=== PATIENT | female | born 1980 | race Caucasian/White ===

== ENCOUNTER 2016-06-12 17:50 | Emergency (ER) | payer BC ==
[~2016-06-12] VITALS: Ht 174 cm; Wt 127.4 kg
[~2016-06-12 17:50] MED LIST: BREAST PUMP MC; ENDOCET 5-3251 EACH PO; IBUPROFEN800 MG PO; IRON325 MG PO; LEXAPRO10 MG PO; Motrin PO; NATALCARE RX1 TABLET PO; NORCO 5/3251 TABLET PO; ONCE DAILY1 EACH PO; PROTONIX40 MG PO; Percocet 5/325,Endoc PO
[2016-06-12 19:44] LABS: ADD MIUA? NO; BILIRUBIN NEGATIVE; BLOOD NEGATIVE; COLOR COLORLESS ((YELLOW)); GLUCOSE (STRIP) NEGATIVE; KETONES NEGATIVE; LEUKOCYTES NEGATIVE; NITRITE NEGATIVE; PROTEIN (STRIP) NEGATIVE; SPECIFIC GRAVITY 1.003 (1.000-1.030); UROBILINOGEN 0.2 MG/DL (0.2-1.0)
[2016-06-12 19:51] LABS: HEMATOCRIT 30.1 % (36.0-46.0); MCH 20.7 PG (29.0-34.0); MCHC 30.9 G/DL (30.0-36.0); MEAN PLAT.VOLUME 10.2 uM^3 (9.5-12.4); PLATELET COUNT 270 K/uL (156-360); RBC DIS.WIDTH-CV 16.3 % (11.8-14.6); RBC DIS.WIDTH-SD 38.8 % (39-53); RED BLOOD COUNT 4.49 M/uL (3.80-5.20); WHITE BLOOD COUNT 15.6 K/uL (4.1-10.2)
[2016-06-12 19:54] LABS: BASOPHIL COUNT 0.1 K/uL (0-0.1); EOSINOPHIL (%) 0.4 % (0-5); EOSINOPHIL COUNT 0.1 K/uL (0-0.3); IMMATURE GRANULOCYTE (%) 0.3 % (0.0-0.7); IMMATURE GRANULOCYTE COUNT 0.5 K/uL; LYMPHOCYTE COUNT 3.5 K/uL (1.0-2.8); MONOCYTE (%) 5.4 % (3-12); MONOCYTE COUNT 0.8 K/uL (0-0.8); NEUTROPHIL (%) 71.5 % (45-76); NEUTROPHIL COUNT 11.1 K/uL (1.8-6.4)
[2016-06-12 20:00] LABS: CHLORIDE 102 mEq/L (99-109); SODIUM 138 mEq/L (136-147)
[2016-06-12 20:02] LABS: GLUCOSE 105 mg/dL (70-99)
[2016-06-12 20:03] LABS: ANION GAP 9 MEQ/L (2-14)
[2016-06-12 20:04] LABS: TOTAL BILIRUBIN 0.3 mg/dL (0.0-1.0)
[2016-06-12 20:06] LABS: ALKALINE PHOSPHATASE 82 IU/L (3-129); GFR ESTIMATE (CALCULATED) > 59 mL/min/
[2016-06-12 20:07] LABS: UREA NITROGEN (BUN) 10 mg/dL (9-23)
[2016-06-12 20:09] LABS: LIPASE 24 U/L (1.0-51.0)
[2016-06-12] MEDS ORDERED: BENTYL20 MG PO (20:40)
[2016-06-12] MEDS ORDERED: ZANTAC300 MG PO (20:40)
[2016-06-12] MEDS ORDERED: ZOFRAN ODT4 MG PO (20:40)
[2016-06-12 21:08] VITALS: BP 134/92
== END 2016-06-12 21:09 | disposition home or self-care (01) ==
LOC: EME 17:50
PROVIDERS: Physician Assistant
DX: R10.13 Epigastric pain (principal); D64.9 Anemia, unspecified; D72.829 Elevated white blood cell count, unspecified; R14.0 Abdominal distension (gaseous); R11.2 Nausea with vomiting, unspecified; Z91.14 Patient's other noncompliance with medication regimen; F17.200 Nicotine dependence, unspecified, uncomplicated
CPT/HCPCS: 80053; 81003; 83690; 85025; 99281; 99284; J0500